=== PATIENT | female | born 1990 | race African-American/Black ===

== ENCOUNTER 2020-02-26 13:08 | Observation (INO) | payer MEDICAID ==
[~2020-02-26] VITALS: Ht 180.3 cm; Wt 141.1 kg
[2020-02-26] MEDS ORDERED: PNV1TABL76 PO (13:57)
[2020-02-26 16:24] LABS: BASOPHILS % 0.3 % (0.0-2.0); EOSINOPHILS % 0.4 % (0.0-5.0); HEMOGLOBIN. 9.8 g/dL (12.0-16.0); LYMPHOCYTES % 15.3 % (20.0-50.0); MEAN CORPUSCULAR HEMOGLOBIN 25.5 pg (28.0-32.0); MEAN CORPUSCULAR VOLUME 80.9 fL (81.0-99.0); MEAN PLATELET VOLUME 10.6 fl (7.4-10.4); MONOCYTES % 6.6 % (2.0-8.0); NEUTROPHILS % 77.4 % (40.0-76.0); PLATELET 245 x1000/uL (130-400); RED BLOOD CELL COUNT 3.84 mill/uL (4.2-5.4); RED CELL DISTRIBUTION WIDTH 14.5 % (11.6-14.6)
[2020-02-26 16:29] LABS: CHLORIDE 105 mEq/L (98-107)
[2020-02-26 16:38] LABS: D-DIMER 2.23 mg/L FEU (<0.50); PARTIAL THROMBOPLASTIN TIME 29.8 sec (23.4-31.0); PROTHROMBIN TIME 10.2 sec (9.6-11.0)
== END 2020-02-26 16:25 | disposition home or self-care (01) ==
LOC: 8 EST A/PP 13:08
PROVIDERS: ADMIT Obstetrics & Gynecology; ATTEND Obstetrics & Gynecology
DX: Z34.83 Encounter for supervision of other normal pregnancy, third trimester (principal); Z3A.35 35 weeks gestation of pregnancy; Z79.899 Other long term (current) drug therapy
CPT/HCPCS: 36415; 59025; 76815; 76818; 80053; 84550; 85025; 85379; 85384; 85610; 85730; G0378; 99281

== ENCOUNTER → 2020-03-17 | Outpatient (CLI) | payer MEDICAID ==
[~2020-03-17] MED LIST: FERR325T6 PO; PNV1TABL76 PO
== END | disposition home or self-care (01) ==
LOC: LAB 10:59
PROVIDERS: ATTEND Obstetrics & Gynecology
DX: Z20.828 Contact with and (suspected) exposure to other viral communicable diseases (principal)
CPT/HCPCS: C9803; U0003

== ENCOUNTER 2021-02-10 21:27 | Observation (INO) | payer MEDICAID ==
[~2021-02-10] VITALS: Ht 175.3 cm; Wt 155.1 kg
== END 2021-02-10 23:40 | disposition left against medical advice (07) ==
LOC: 8 EST A/PP 21:27
PROVIDERS: ADMIT Specialist; ATTEND Obstetrics & Gynecology
DX: O26.893 Other specified pregnancy related conditions, third trimester (principal); R10.30 Lower abdominal pain, unspecified; O99.891 Other specified diseases and conditions complicating pregnancy; M54.5 Low back pain; Z3A.36 36 weeks gestation of pregnancy
CPT/HCPCS: 59025; G0378; 99281

== ENCOUNTER 2022-06-10 15:14 | Emergency (ER) | payer MEDICAID ==
[~2022-06-10] VITALS: Ht 175.3 cm; Wt 147.0 kg
[~2022-06-10 15:14] MED LIST changes: +FERR325T23 PO; -FERR325T6 PO; +IBUP-2030 PO; +MULT-904 PO; -PNV1TABL76 PO
[2022-06-10 15:32] VITALS: BP 124/90
[2022-06-10] MEDS ORDERED: KETOROLAC 60MG/2ML VIAL IM ONE (17:15)
[2022-06-10] MEDS ORDERED: DIPHENHYDRAMINE 25MG CAPSULE PO ONE (17:15)
[2022-06-10] MEDS ORDERED: DEXAMETHASONE 10 MG/ML VIAL IM ONE (17:15)
[2022-06-10] MEDS ORDERED: METOCLOPRAMIDE HCL 10MG TABLET PO ONE (17:15)
[2022-06-10] MEDS ORDERED: ACETAMINOPHEN 325MG TABLET PO ONE (17:15)
[2022-06-10] MEDS ORDERED: ACET-2708 MT (18:50)
[2022-06-10] MEDS ORDERED: METO-293 MT (18:50)
== END 2022-06-10 19:18 | disposition home or self-care (01) ==
LOC: ER 15:14
DX: G43.909 Migraine, unspecified, not intractable, without status migrainosus (principal); F17.210 Nicotine dependence, cigarettes, uncomplicated; Z98.890 Other specified postprocedural states
CPT/HCPCS: 81025; 96372; 99284; J1100; J1885; J8597; Q0163